=== PATIENT | female | born 1960 | race Caucasian/White ===

== ENCOUNTER 2021-02-20 16:10 | Outpatient (CLI) | payer OTHER, SELFPAY ==
--- NOTE | ~2021-02-20 | US_ITS ---
EXAMINATION: US retroperitoneal duplex ltd DATE: 02/20/2021 17:08 INDICATION: hypertension TECHNIQUE: Multiple grayscale, color Doppler, and pulsed Doppler images of the kidneys and renal vishal albert were obtained. COMPARISON: None. FINDINGS: The aorta peak systolic velocity is 119 cm/s. The right renal artery peak systolic velocity is 195 cm /s in the proximal segment, 116 cm/s in the mid segment, and 160 cm/s in the distal segment. The left renal artery peak systolic velocity is 124 cm/s in the proximal segment, 124 cm/s in the mid segment , and 127 cm/s in the distal segment. IMPRESSION: 1. Elevated peak systolic velocities of the proximal right renal artery consistent with >50-60% sten osis. Reviewed, dictated and finalized at location A. IMPRESSION: 1. Elevated peak systolic velocities of the proximal right renal artery consis tent with >50-60% stenosis.
== END 2021-02-20 16:11 | disposition home or self-care (01) ==
PROVIDERS: Visit Provider Internal Medicine Cardiovascular Disease
DX: I10 Essential (primary) hypertension (principal)
CPT/HCPCS: 93976

== ENCOUNTER 2022-10-19 07:05 | Outpatient (CLI) | payer OTHER, SELFPAY ==
--- NOTE | ~2022-10-19 | XR_ITS ---
XR lumbar spine min 4V 10/19/2022 07:28 Indication: Spondylolisthesis. Procedure: 4 views lumbar spine including flexion/extension views Comparison: No prior studies for comparison. Findings: There is disc narrowing at L3-4, L4-5 and L5-S1. There is grade 1 spondylolisthesis at L3-4 and grade 2 spondylolisthesis at L4-5, without significant change during flexion and extension. Ther e is moderate multilevel facet hypertrophy. Vertebral body heights are maintained. Mild levocurvature of the lumbar spine. There are cholecystectomy clips. Impression: 1: Severe lumbar spondylosis with grade 1 spondylolisthesis at L3-4 and grade 2 spondylolisthesis at L4-5. Reviewed, dictated and finalized at location A. Impression: 1: Severe lumbar spondylosis with grade 1 spondylolisthesis at L3-4 and grade 2 spondylolisthesis at L4-5.
== END 2022-10-19 07:06 | disposition home or self-care (01) ==
PROVIDERS: Visit Provider Neurological Surgery
DX: M43.16 Spondylolisthesis, lumbar region (principal); M47.896 Other spondylosis, lumbar region
CPT/HCPCS: 72110

== ENCOUNTER 2023-04-12 09:58 | Outpatient (CLI) | payer OTHER, SELFPAY ==
--- NOTE | ~2023-04-12 | XR_ITS ---
EXAMINATION:XR_CERV2-3V_CR DATE: 04/12/2023 10:16 INDICATION: Neck pain TECHNIQUE: AP, lateral, lateral swimmers and odontoid views of the cervical spine are provided. COMPARISON: None FINDINGS: 2 mm retrolisthesis C6 with respect to both C5 and C7. Odontoid is intact. Normal atlantoaxial inter marizol. Vertebral body heights are normal. Severe disc height loss with degenerative endplate changes an d severe bilateral uncovertebral osteoarthritis at C6-C7. Mild disc height loss at C5-C6. Mild to mod erate cervical facet osteoarthritis most prominent on the left at C3-C4, C5-C6 and C6-C7 Prevertebral soft tissues are normal. Visualized apices of lungs are clear. IMPRESSION: 1. Severe lower cervical spondylosis. Reviewed, dictated and finalized at location A. L PREPAREDNESS OFFICER
== END 2023-04-12 09:59 | disposition home or self-care (01) ==
PROVIDERS: PCP Family Medicine; Visit Provider Nurse Practitioner Family
DX: R20.0 Anesthesia of skin (principal); M43.02 Spondylolysis, cervical region
CPT/HCPCS: 72040

== ENCOUNTER 2023-06-27 09:02 | Outpatient (CLI) | payer OTHER, SELFPAY ==
--- NOTE | ~2023-06-27 | XR_ITS ---
XR_CERV2-3V_CR DATE: 06/27/2023 09:24 INDICATION: Status post surgical fusion for one week TECHNIQUE: Standing AP and lateral views COMPARISON: 04/2023 cervical spine FINDINGS: Status post anterior surgical fusion by plate and screws and interbody fusion at C5-6. Ther e is approximately 1 mm anterolisthesis at C5-6. Mild cervical dextroscoliosis. Severe degenerative disease at C6-7 is again noted. No fracture or dislocation or locked facet. There is mild prevertebral soft tissue prominence, which is likely postoperative change. IMPRESSION: Status post anterior and interbody surgical fusion at C5-6 Severe degenerative disc disease at C6-7 Reviewed, dictated and finalized at Location A. Reviewed, dictated and finalized at location B. TORIAL SPECIALIST
== END 2023-06-27 09:03 | disposition home or self-care (01) ==
PROVIDERS: PCP Family Medicine; Visit Provider Neurological Surgery
DX: M50.323 Other cervical disc degeneration at C6-C7 level (principal); Z98.1 Arthrodesis status
CPT/HCPCS: 72040

== ENCOUNTER 2024-01-10 08:36 | Outpatient (CLI) | payer OTHER, SELFPAY ==
--- NOTE | ~2024-01-10 | XR_ITS ---
XR lumbar spine 2-3V DATE: 01/10/2024 09:04 INDICATION: Arthrodesis status check TECHNIQUE: AP, lateral, cone-down lateral lumbosacral views COMPARISON: 10/19/2022 lumbar spine FINDINGS: Status post posterior and interbody surgical fusion at L3-L5, new since 10/19/2022. The hard pa is intact without evidence of fracture or displacement. There is approximately 9 mm anterolisthesis at L4-5, improved from approximately 12.8 mm on 10/19/2022 . Otherwise there is normal alignment of the lumbar spine. There is chronic severe degenerative disc disease at L5-S1. No fracture or bone destruction is detected. The sacroiliac joints are intact. Surgical clips, right upper quadrant, consistent with cholecystectomy. IMPRESSION: Status post posterior and interbody surgical fusion at L3-L5 since 10/19/2022 Improvement of anterolisthesis at L4-5, currently approximately 9 mm compared to 12.8 mm on 10/19/2022 Chronic severe degenerative disc disease at L5-S1 Reviewed, dictated and finalized at location J. IMPRESSION: Status post posterior and interbody surgical fusion at L3-L5 since 10/19/2022 Improvement of anterolisthesis at L4-5, currently approximately 9 mm compared t o 12.8 mm on 10/19/2022 Chronic severe degenerative disc disease at L5-S1
== END 2024-01-10 08:37 | disposition home or self-care (01) ==
LOC: ANHIMG 08:50
PROVIDERS: PCP Family Medicine; Visit Provider Neurological Surgery
DX: M51.37 Other intervertebral disc degeneration, lumbosacral region (principal); Z98.1 Arthrodesis status
CPT/HCPCS: 72100

== ENCOUNTER 2024-04-22 15:58 | Outpatient (CLI) | payer OTHER, SELFPAY ==
--- NOTE | ~2024-04-22 | US_ITS ---
EXAMINATION: US retroperitoneal duplex ltd DATE: 04/22/2024 16:46 INDICATION: Hypertension. Right renal artery stenosis. TECHNIQUE: Multiple grayscale, color Doppler, and pulsed Doppler images of the kidneys and renal vishal albert were obtained. COMPARISON: Ultrasound 02/20/2021 FINDINGS: The aorta peak systolic velocity is 83 cm/s. Right kidney measures 10.3 x 5.7 x 5.4 cm The right harini l artery peak systolic velocity is 135 cm/s in the mid segment and 64 cm/s in the distal segment. Lef t kidney measures 11.0 x 5.6 x 5.5 cm . The left renal artery peak systolic velocity is 50 cm/s in th e mid segment and 71 cm/s in the distal segment. IMPRESSION: 1. No Doppler evidence of renal artery stenosis. Reviewed, dictated and finalized at location A. UCTION TECHNICIAN
== END 2024-04-22 15:59 | disposition home or self-care (01) ==
LOC: ANHIMG 15:58
PROVIDERS: PCP Family Medicine; Visit Provider Nurse Practitioner Adult Health
DX: I70.1 Atherosclerosis of renal artery (principal)
CPT/HCPCS: 93976

== ENCOUNTER 2024-05-20 10:32 | Outpatient (CLI) | payer OTHER, SELFPAY ==
--- NOTE | ~2024-05-20 | MMUS_ITS ---
EXAMINATION: MM diagnostic marie RT w rosa, US breast RT limited HISTORY: Abnormal outside mammogram. TECHNIQUE: Additional 3-D tomosynthesis images of the right breast were performed and synthetic 2-D i mages were generated. CAD analysis was submitted and interpreted. High resolution Limited right breas t ultrasound was performed. COMPARISON: Comparison to multiple prior studies sequentially, with oldest reviewed study dated 02/2022. BREAST PARENCHYMAL COMPOSITION: Not dense: There are scattered areas of fibroglandular density. FINDINGS: MAMMOGRAPHIC FINDINGS: There are no suspicious masses, calcifications or architectural distortion in the right breast to sug gest malignancy. ULTRASOUND: Limited right breast ultrasound: At 4:00, 9 cm from the nipple there is a subcutaneous cyst measuring 4 mm, likely benign sebaceous cyst. No suspicious masses in the left breast. IMPRESSION: 1. No evidence for malignancy in the right breast. 2. Routine yearly screening mammogram and regular clinical breast examination are recommended. BI-RADS Category 2: Benign finding(s). Reviewed, dictated and finalized at location B. BEVERAGE SUPERVISOR IMPRESSION: 1. No evidence for malignancy in the right breast. 2. Routine yearly screening mammogram and regular clinical breast examination a re recommended. BI-RADS Category 2: Benign finding(s).
== END 2024-05-20 10:33 | disposition home or self-care (01) ==
PROVIDERS: PCP Family Medicine; Visit Provider Obstetrics & Gynecology Gynecology
DX: R92.8 Other abnormal and inconclusive findings on diagnostic imaging of breast (principal)
CPT/HCPCS: 76642; 77061; 77065; G0279

== ENCOUNTER 2024-08-02 13:02 | Outpatient (CLI) | payer OTHER, SELFPAY ==
--- NOTE | ~2024-08-02 | MR_ITS ---
EXAMINATION: MR lumbar spine wo/w con DATE: 08/02/2024 13:56 INDICATION: Arthrodesis status. Disc degeneration. Low back pain. TECHNIQUE: Magnetic resonance imaging (MRI) of the lumbar spine was performed without and with 20 mL MultiHance intravenous contrast. COMPARISON: Lumbar spine radiograph 01/10/2024 FINDINGS: There is 3 degrees levocurvature of lumbar spine. There is 4 mm retrolisthesis of L2 on L3, 4 mm anterolisthesis of L3 on L4, 5 mm anterolisthesis of L4-L5, and 5 mm retrolisthesis of L5 on S1 . There is mild chronic anterior wedging of T11-L1 vertebral bodies. There are changes of anterior fu jorge procedures at L3-L4 and L4-L5 with interbody devices. There are changes of posterior fusion proc edure from L3 to L5 with pedicle screws. There is moderately decreased disc height at L2-L3 and sever karla decreased disc height at L5-S1. The distal spinal cord signal intensity is normal. The conus medu llaris is at L2. The following disc levels are specifically discussed: L1-L2: The disc does not extend beyond the endplate margin. There is mild bilateral facet joint osteo arthritis. There is no neural foraminal stenosis. There is no central canal stenosis. L2-L3: The disc is bulging with superimposed large right subarticular zone extrusion with 2.2 cm infe rior extension There is severe bilateral facet joint osteoarthritis. There is moderate right and mild left neural foraminal stenosis. There is mild central canal stenosis. There is severe stenosis of ri ght lateral recess. L3-L4: There is mild bilateral facet joint hypertrophy. There is mild left neural foraminal stenosis. There is no central canal stenosis. There is posterior decompression. L4-L5: There is moderate right and mild left facet joint hypertrophy. There is moderate right and mil d left neural foraminal stenosis. There is no central canal stenosis. There is posterior decompressio n. L5-S1: The disc is bulging and has an annular fissure. There is moderate bilateral facet joint osteoa rthritis. There is moderate bilateral neural foraminal stenosis. There is mild central canal stenosis . IMPRESSION: 1. Severe lumbar spondylosis. 2. Anterior posterior fusion procedures from L3 to L5. Reviewed, dictated and finalized at location A. R FISHER
== END 2024-08-02 13:03 | disposition home or self-care (01) ==
PROVIDERS: PCP Family Medicine; Visit Provider Neurological Surgery
DX: M51.362 Other intervertebral disc degeneration, lumbar region with discogenic back pain and lower extremity pain (principal); M43.06 Spondylolysis, lumbar region; Z98.1 Arthrodesis status
CPT/HCPCS: 72158; A9577

== ENCOUNTER 2024-10-04 08:08 | Outpatient (CLI) | payer OTHER, SELFPAY ==
--- NOTE | ~2024-10-04 | XR_ITS ---
3 VIEWS LUMBAR SPINE Ordering provider: Baljeet Zhang, History: . Arthrodesis status . Comparison: January 10, 2024 FINDINGS: VERTEBRAL BODIES: No visible fracture or subluxation. Postoperative changes which is extending for 1 more level compared to the previous study DISK SPACES: Disc spacers at the level of L2-L3, L3-L4 and L4-L5. Degenerative disc disease at the le chel of L5-S1. SOFT TISSUES: Atherosclerotic changes of the aorta. IMPRESSION: No acute osseous abnormality lumbar spine. Multilevel fixation of the spine. Reviewed, dictated and finalized at location A.
== END 2024-10-04 08:09 | disposition home or self-care (01) ==
LOC: MICIMG 08:10
PROVIDERS: PCP Family Medicine; Visit Provider Neurological Surgery
DX: Z98.1 Arthrodesis status (principal)
CPT/HCPCS: 72100

== ENCOUNTER 2024-11-13 10:02 | Outpatient (CLI) | payer BC, SELFPAY ==
--- NOTE | ~2024-11-13 | XR_ITS ---
EXAM: XR lumbar spine 2-3V DATE: 11/13/2024 10:27 HISTORY: Status post L2-3 decompressive laminectomy . COMPARISON: 10/04/2024. FINDINGS: 5 nonrib-bearing lumbar-type vertebral bodies. Cholecystomy clips. Decreased mineralizatio n. Posterior fusion hardware spanning L2-L5. Stable interbody devices at L2-3, L3-4, and L4-5. Stable grade 1 anterolisthesis at L4-5, given interval differences in positioning and technique. Severe deg enerative disc disease and facet arthropathy at L5-S1. Moderate facet arthropathy at L1-2. Atheroscle rotic aortic calcification without evident aneurysm. IMPRESSION: Osteopenia. Uncomplicated appearing posterior fusion hardware and interbody devices. Stab le grade 1 anterolisthesis at L4-5. Severe degenerative disc disease at L5-S1. Multilevel facet arthr opathy. Reviewed, dictated and finalized at location K. IMPRESSION: Osteopenia. Uncomplicated appearing posterior fusion hardware and i nterbody devices. Stable grade 1 anterolisthesis at L4-5. Severe degenerative d isc disease at L5-S1. Multilevel facet arthropathy.
== END 2024-11-13 10:03 | disposition home or self-care (01) ==
LOC: MICIMG 10:07
PROVIDERS: PCP Family Medicine; Visit Provider Neurological Surgery
DX: Z98.1 Arthrodesis status (principal)
CPT/HCPCS: 72100

== ENCOUNTER 2025-04-15 08:33 | Outpatient (CLI) | payer MEDICARE, SELFPAY ==
--- NOTE | ~2025-04-15 | DEXA_ITS ---
Bone Density Report Name: GIANNA CHAUDHRY Age: 64 Sex: Female Ethnicity: White Date of : 1960 Indication: postmenopausal; screening for osteoporosis; height loss; hysterectomy; Referring Provider: GOLDEN, CHANDRIKA Britt Study: Bone densitometry was performed. Exam Date: April 15, 2025 Accession number: [id number] Bone Density: Region BMD T-score Z-score Classification Femoral Neck (Left) 0.881 0.3 1.8 Normal Total Hip (Left) 1.112 1.4 2.7 Normal Femoral Neck (Right) 0.885 0.3 1.9 Normal Total Hip (Right) 1.072 1.1 2.3 Normal Total Hip Mean 1.092 1.3 2.5 Normal World Health Organization criteria for BMD impression classify patients as: Normal (T-score at or above -1.0), Osteopenia (T-score between -1.0 and -2.5), or Osteoporosis (T-score at or below -2.5). 10-year Fracture Risk: FRAX not reported because: All T-scores for Spine Total, Hip Total, Femoral Neck at or above -1.0 Clinical Information Provided by Patient: Has used the following medications: HRT (i.e. estrogen/hormone therapy), Vitamin D Has the following medical conditions: Hysterectomy Patient maximum height was 65 Menopause Age: 38 Drinks caffeinated beverages Onset of menses at age 11 Number of children 2 Impression: The patient has normal bone mass. Discussion: BONE DENSITY IS ABOVE THE MINIMUM DESIRABLE LEVEL AT ALL SKELETAL SITES TESTED. This patient?s bone mineral density is above the minimum desirable level (T-score -1.0 or better) at all sites measured. The patient should follow a healthful lifestyle (good nutrition with adequate calcium and vitamin D, and appropriate weight-bearing exercise). Follow-Up: Consider repeating this study in 5 years or sooner if there is some new clinical indication. Reported by: ZEKE on 04/15/2025 9:13:00 AM. Reviewed, dictated and finalized at location A.
== END 2025-04-15 08:34 | disposition home or self-care (01) ==
LOC: MICIMG 08:36
PROVIDERS: PCP Family Medicine; Visit Provider Family Medicine
DX: Z78.0 Asymptomatic menopausal state (principal); Z13.820 Encounter for screening for osteoporosis
CPT/HCPCS: 77080